=== PATIENT | male | born 1970 | race Caucasian/White ===

== ENCOUNTER → 2017-02-08 | Outpatient (REF) | payer BC, OTHER ==
[~2017-02-08] MED LIST: ADV500INH INH; ALBU0.084 IN; ALDA25TA2 PO; BENI40TA3 PO; CATA0.1T PO; COLCPOW6 XX; CRES5TAB PO; DOXA2TAB PO; FURO40TA2 PO; LOPR100T PO; METO100T PO; MINO25TA PO; MULTCAP12 PO; SENO8.6T9 PO; TYLE325T5 PO; VITA500C PO; ZYRT10CA PO
[2017-02-08 14:55] LABS: COMPLEMENT C4 29.8 MG/DL (10-40)
== END ==
LOC: M LAB REF 12:55
PROVIDERS: ATTEND Internal Medicine Nephrology
DX: M19.93 Secondary osteoarthritis, unspecified site (principal)

== ENCOUNTER → 2017-10-07 | Outpatient (CLI) | payer BC, OTHER ==
[2017-10-07 11:36] LABS: HEMATOCRIT 39.5 % (42.0-52.0); HEMOGLOBIN 13.9 g/dl (13.5-17.5); MEAN CORPUSCULAR HEMOGLOBIN 29.4 pg (27.0-33.0); MEAN CORPUSCULAR HGB CONC 35.2 g/dl (32.0-36.5); MEAN CORPUSCULAR VOLUME 83.7 fl (80.0-96.0); PLATELET COUNT, AUTOMATED 213 10^3/uL (150-450); RED BLOOD COUNT 4.72 10^6/uL (4.30-6.10); RED CELL DISTRIBUTION WIDTH 12.6 % (11.5-14.5); WHITE BLOOD COUNT 5.3 10^3/uL (4.0-10.0)
[2017-10-07 12:13] LABS: ALBUMIN 3.7 GM/DL (3.2-5.2); ALBUMIN/GLOBULIN RATIO 1.09 (1.00-1.93); ALKALINE PHOSPHATASE 90 U/L (45-117); ALT/SGPT 26 U/L (12-78); ANION GAP 6 MEQ/L (8-16); AST/SGOT 17 U/L (7-37); BILIRUBIN,TOTAL 1.2 MG/DL (0.2-1.0); BLOOD UREA NITROGEN 30 MG/DL (7-18); CALCIUM LEVEL 8.9 MG/DL (8.5-10.1); CARBON DIOXIDE LEVEL 32 MEQ/L (21-32); CHLORIDE LEVEL 105 MEQ/L (98-107); CHOLESTEROL LEVEL 198 MG/DL (<200); CPK CREATINE PHOSPHOKINASE 85 U/L (39-308); CREATININE FOR GFR 1.49 MG/DL (0.70-1.30); GLOMERULAR FILTRATION RATE 53.8 (>60); GLUCOSE, FASTING 92 MG/DL (70-100); HDL CHOLESTEROL 44 MG/DL (>40); LDL CHOLESTEROL 120.6 MG/DL (<100); NON-HDL-C 154 MG/DL; SODIUM LEVEL 143 MEQ/L (136-145); TOTAL PROTEIN 7.1 GM/DL (6.4-8.2); TRIGLYCERIDES LEVEL 167 MG/DL (<150)
== END ==
LOC: M LRY 10:19
DX: I10 Essential (primary) hypertension (principal); E78.00 Pure hypercholesterolemia, unspecified
CPT/HCPCS: 82550

== ENCOUNTER → 2018-01-20 | Outpatient (CLI) | payer BC, OTHER ==
[2018-01-20 12:32] LABS: HEMOGLOBIN 13.6 g/dl (13.5-17.5)
[2018-01-20 12:32] LABS: HEMATOCRIT 38.7 % (42.0-52.0)
[2018-01-20 13:02] LABS: ALBUMIN 3.4 GM/DL (3.2-5.2)
[2018-01-20 13:02] LABS: IRON (FE) 61 UG/DL (65-175); PERCENT SATURATION 23.1 % (19.7-50.0); TOTAL IRON BINDING CAPACITY 264 UG/DL (250-450)
[2018-01-20 13:06] LABS: ESTIMATED AVERAGE GLUCOSE 88 MG/DL (60-110); HEMOGLOBIN A1c 4.7 %
== END ==
LOC: M LRY 08:06
DX: Z51.81 Encounter for therapeutic drug level monitoring (principal); Z79.899 Other long term (current) drug therapy; M25.552 Pain in left hip; M16.11 Unilateral primary osteoarthritis, right hip
CPT/HCPCS: 82040

== ENCOUNTER → 2019-02-04 | Outpatient (REF) | LOC: M LAB LCGH 15:35 | PROVIDERS: ATTEND Physician Assistant | DX: C44.622 Squamous cell carcinoma of skin of right upper limb, including shoulder (principal) ==

== ENCOUNTER → 2020-10-03 | Outpatient (REF) | payer BC, OTHER | LOC: M LAB REF 14:09 | PROVIDERS: ATTEND Physician Assistant | DX: D23.5 Other benign neoplasm of skin of trunk (principal) ==

== ENCOUNTER → 2021-03-23 | Outpatient (CLI) | payer BC, OTHER ==
--- NOTE | 2021-03-24 04:53 | REP ---
INDICATION: LT HIP PAIN. COMPARISON: None. TECHNIQUE: Single limited AP view of the mid to lower pelvis FINDINGS: Prior right hip replacement. 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 IMPRESSION: Advanced degenerative changes to the left hip. <Electronically signed by Moncho Colbert > 03/24/21 [id number]
== END ==
LOC: M SOG 15:01
PROVIDERS: ATTEND Orthopaedic Surgery Adult Reconstructive Orthopaedic Surgery
DX: M25.552 Pain in left hip (principal); Z96.641 Presence of right artificial hip joint; M16.12 Unilateral primary osteoarthritis, left hip

== ENCOUNTER → 2021-05-02 | Outpatient (CLI) | payer BC, OTHER ==
[~2021-05-02] MED LIST changes: +ACET-683 PO; +ALBU8.5H INH; +AMIL5TAB4 PO; +ANOR1AER INH; +CALC1CAP31 PO; +CLON-412 PO; +COLC0.6T47 PO; +FEBU40TA2 PO; +FEBU80TA PO; +METO100T5 PO; +MINO10TA PO; +OLME40TA PO; +ROSU10TA6 PO; +TORS20TA2 PO
== END ==
LOC: M RAD 13:11
PROVIDERS: ATTEND Orthopaedic Surgery Adult Reconstructive Orthopaedic Surgery
DX: M16.12 Unilateral primary osteoarthritis, left hip (principal); Z96.641 Presence of right artificial hip joint

== ENCOUNTER → 2021-05-05 | Outpatient (REF) | payer BC, OTHER | LOC: M LAB REF 12:44 | PROVIDERS: ATTEND Nurse Practitioner Family | DX: E83.42 Hypomagnesemia (principal) ==

== ENCOUNTER 2021-05-09 06:13 | Inpatient (IN) | payer BC, OTHER ==
[~2021-05-09] VITALS: Ht 175.3 cm; Wt 136.0 kg
[~2021-05-09 06:13] MED LIST changes: +ACETAMINOPHEN 500 MG TAB PO ONE; +CLONIDINE PA ONE; +EPINEPHRINE PA ONE; +LR 1,000 ML IV ONE; +NAPROXEN 250 MG TAB PO ONE; +NS 1,000 ML IV ONE; +PREGABALIN 25 MG CAP (LYRICA) PO ONE; +ROPIVA 125MG/EPINEPH 0.25MG/CLONID 40MCG/KETOR 15MG IN NS 50ML SYRINGE PA ONE; +ROPIVACAINE PA ONE; +SODIUM CHLORIDE PA ONE; +TRANEXAMIC ACID INJection 1,000 MG in NS 50 ML IV ONE; +ceFAZolin SOD 1 GM in D5W MINI-BAG PLUS 50 ML IV ONE; +ceFAZolin SOD 2 GM in IV 1 EA IV ONE; +dexameTHASONE 4 MG/ML 1ML VIAL (J1100 PER 1MG) IV ONE
[2021-05-09] MEDS ORDERED: propofoL 500 MG/50 ML VIAL As Ordered ONE (06:56)
[2021-05-09] MEDS ORDERED: LIDOCAINE 2% 100MG/5ML SDV (FOR ANES.) As Ordered ONE (06:59)
[2021-05-09] MEDS ORDERED: ROCURONIUM BROMIDE 50 MG/5 ML VIAL As Ordered ONE (07:06)
[2021-05-09] MEDS ORDERED: MIDAZOLAM INJ 2MG/2ML VIAL (J2250 PER 1MG) As Ordered ONE (07:06)
[2021-05-09] MEDS ORDERED: fentaNYL 100 MCG/2 ML INJECTION (J3010) As Ordered ONE (07:07)
[2021-05-09] MEDS ORDERED: TRANEXAMIC ACID 100 MG/ML 10ML VIAL As Ordered ONE (07:16)
[2021-05-09] MEDS ORDERED: ROPIVACAINE PA ONE ×2 (08:10→08:30)
[2021-05-09] MEDS ORDERED: SODIUM CHLORIDE PA ONE ×2 (08:10→08:30)
[2021-05-09] MEDS ORDERED: CLONIDINE PA ONE ×2 (08:10→08:30)
[2021-05-09] MEDS ORDERED: EPINEPHRINE PA ONE ×2 (08:10→08:30)
[2021-05-09] MEDS ORDERED: KETAMINE HCL 200 MG/20 ML VIAL As Ordered ONE (08:12)
[2021-05-09] MEDS ORDERED: PHENYLephrine 500MCG 5ML (100MCG/ML) SYRINGE As Ordered ONE (08:27)
[2021-05-09] MEDS ORDERED: HYDROmorphone HCL 2MG/ML 1ML VIAL As Ordered ONE (08:37)
[2021-05-09] MEDS ORDERED: ePHEDrine SULFATE 25 MG/5 ML(5MG/ML) SYRINGE As Ordered ONE ×2 (08:44→09:16)
[2021-05-09] MEDS ORDERED: SUGAMMADEX SODIUM 500 MG/5 ML VIAL (BRIDION) As Ordered ONE (09:14)
[2021-05-09] MEDS ORDERED: ONDANSETRON 4MG/2ML VIAL As Ordered ONE (09:14)
[2021-05-09] MEDS ORDERED: METOCLOPRAMIDE INJ 10MG/2ML VIAL (J2765 PER 1) As Ordered ONE (09:51)
[2021-05-09] MEDS ORDERED: COLCHICINE 0.6 MG TABLET PO PRN (12:20)
[2021-05-09] MEDS ORDERED: fentaNYL 100 MCG/2 ML INJECTION (J3010) IV PRN (12:25)
[2021-05-09] MEDS ORDERED: LR 1,000 ML IV SCH ×2 (12:25→12:30)
[2021-05-09] MEDS ORDERED: HYDROMORPHONE HCL 0.5 MG/ 0.5 ML SYRINGE (J1170 PER 1) IV PRN (12:25)
[2021-05-09] MEDS ORDERED: ONDANSETRON 4MG/2ML VIAL IV PRN ×2 (12:25→12:35)
[2021-05-09] MEDS ORDERED: SENNA 8.6 MG TAB (SENOKOT) PO PRN (12:30)
[2021-05-09] MEDS ORDERED: oxyCODONE 5MG TAB PO PRN (12:30)
[2021-05-09] MEDS: oxyCODONE 5MG TAB PO PRN ×3 (12:35→22:11)
[2021-05-09 15:30] VITALS: BP 156/88
[2021-05-09 16:00] VITALS: BP 130/83
[2021-05-09 17:00] VITALS: BP 137/85
[2021-05-09] MEDS: ceFAZolin SOD 2 GM in IV 1 EA IV SCH ×2 (17:05→23:44)
[2021-05-09] MEDS: ACETAMINOPHEN TAB 650MG DOSE (2X325MG) PO SCH ×2 (17:06→23:44)
[2021-05-09] MEDS: TORSEMIDE 20 MG TAB PO SCH (17:06)
[2021-05-09 18:00] VITALS: BP 140/79
[2021-05-09 19:00] VITALS: BP 141/79
[2021-05-09 20:00] VITALS: BP 146/83
[2021-05-09] MEDS: DOCUSATE SODIUM 100MG CAPSULE PO SCH (20:31)
[2021-05-09] MEDS: METOPROLOL TARTRATE 100 MG TAB PO SCH (20:32)
[2021-05-09] MEDS: ASPIRIN 81MG ENTERIC TABLET PO SCH (20:32)
[2021-05-09] MEDS: traMADol 50 MG TAB PO PRN (20:41)
[2021-05-09] MEDS ORDERED: ROSUVASTATIN 10 MG TAB (CRESTOR) PO SCH (21:00)
[2021-05-09] MEDS: minoxidiL 2.5 MG TAB PO SCH (21:07)
[2021-05-09] MEDS: cloNIDine 0.1MG TABLET PO SCH (22:07)
[2021-05-10] VITALS: BP 114/69
[2021-05-10] MEDS: oxyCODONE 5MG TAB PO PRN ×3 (03:13→11:33)
[2021-05-10 05:17] LABS: HEMATOCRIT 33.2 % (42.0-52.0); HEMOGLOBIN 11.7 g/dl (13.5-17.5); MEAN CORPUSCULAR HEMOGLOBIN 30.2 pg (27.0-33.0); MEAN CORPUSCULAR HGB CONC 35.2 g/dl (32.0-36.5); MEAN CORPUSCULAR VOLUME 85.6 fl (80.0-96.0); PLATELET COUNT, AUTOMATED 209 10^3/uL (150-450); RED BLOOD COUNT 3.88 10^6/uL (4.30-6.10); WHITE BLOOD COUNT 8.4 10^3/uL (4.0-10.0)
[2021-05-10] MEDS: ACETAMINOPHEN TAB 650MG DOSE (2X325MG) PO SCH ×2 (05:22→11:32)
[2021-05-10] MEDS: cloNIDine 0.1MG TABLET PO SCH ×2 (05:22→13:37)
[2021-05-10 05:28] LABS: INR 1.04
[2021-05-10 05:44] LABS: ALBUMIN 3.1 GM/DL (3.2-5.2); ALT/SGPT 25 U/L (12-78); BILIRUBIN,TOTAL 0.9 MG/DL (0.2-1.0); BLOOD UREA NITROGEN 18 MG/DL (7-18); CALCIUM LEVEL 7.9 MG/DL (8.5-10.1); CARBON DIOXIDE LEVEL 25 MEQ/L (21-32); CHLORIDE LEVEL 108 MEQ/L (98-107); CREATININE FOR GFR 1.02 MG/DL (0.70-1.30); GLOMERULAR FILTRATION RATE > 60.0 (>56); GLUCOSE, FASTING 109 MG/DL (70-100); POTASSIUM SERUM 3.5 MEQ/L (3.5-5.1); SODIUM LEVEL 141 MEQ/L (136-145); TOTAL PROTEIN 6.4 GM/DL (6.4-8.2)
[2021-05-10] MEDS ORDERED: FORMOTEROL FUMARATE 20 MCG/2 ML INHALATION SOLUTION (PERFOROMIST) INH SCH (08:00)
[2021-05-10] MEDS ORDERED: TIOTROPIUM INHALER/CAPSULE (SPIRIVA) INH SCH (08:00)
[2021-05-10] MEDS ORDERED: CALCITRIOL 0.25 MCG CAP (S0169) PO SCH (09:00)
[2021-05-10] MEDS ORDERED: FERROUS SULFATE 325MG TAB PO SCH (09:00)
[2021-05-10] MEDS ORDERED: ASCORBIC ACID 500 MG TAB PO SCH (09:00)
[2021-05-10] MEDS ORDERED: aMILoride 5 MG TAB PO SCH (09:00)
[2021-05-10] MEDS: TORSEMIDE 20 MG TAB PO SCH (09:57)
[2021-05-10] MEDS: DOCUSATE SODIUM 100MG CAPSULE PO SCH (09:58)
[2021-05-10] MEDS: METOPROLOL TARTRATE 100 MG TAB PO SCH (09:58)
[2021-05-10] MEDS: minoxidiL 2.5 MG TAB PO SCH (09:58)
[2021-05-10] MEDS: ASPIRIN 81MG ENTERIC TABLET PO SCH (09:58)
[2021-05-10 10:00] VITALS: BP 138/86
[2021-05-10] MEDS: traMADol 50 MG TAB PO PRN (10:22)
[2021-05-10] MEDS ORDERED: FERR1TAB8 PO (11:42)
[2021-05-10] MEDS ORDERED: COLA100C5 PO (11:42)
[2021-05-10] MEDS ORDERED: ASPI-551 PO (11:42)
[2021-05-10] MEDS ORDERED: SENN18TA PO (11:42)
[2021-05-10] MEDS ORDERED: OXYC-517 PO (11:42)
[2021-05-10] MEDS ORDERED: TRAM50TA2 PO (11:42)
[2021-05-10 13:37] VITALS: BP 128/72
== END 2021-05-10 14:05 | disposition home or self-care (01) | DRG 301 ==
LOC: M SDC 06:13 → M MS5PR 12:21
PROVIDERS: ADMIT Internal Medicine; ATTEND Orthopaedic Surgery Adult Reconstructive Orthopaedic Surgery
PROC: 0SRB0JZ Replacement of Left Hip Joint with Synthetic Substitute, Open Approach (ICD-10-PCS; principal; 2021-05-09 07:30)
DX: M16.12 Unilateral primary osteoarthritis, left hip (principal); E66.01 Morbid (severe) obesity due to excess calories; I12.9 Hypertensive chronic kidney disease with stage 1 through stage 4 chronic kidney disease, or unspecified chronic kidney disease; Z96.641 Presence of right artificial hip joint; N18.2 Chronic kidney disease, stage 2 (mild); M10.9 Gout, unspecified; E78.00 Pure hypercholesterolemia, unspecified; J45.909 Unspecified asthma, uncomplicated; Z79.899 Other long term (current) drug therapy; Z79.82 Long term (current) use of aspirin

== ENCOUNTER → 2021-05-12 | Outpatient (REF) | payer BC, OTHER ==
[~2021-05-12] MED LIST changes: -ACETAMINOPHEN 500 MG TAB PO ONE; +ASPI-551 PO; -CLONIDINE PA ONE; +COLA100C5 PO; -EPINEPHRINE PA ONE; +FERR1TAB8 PO; -LR 1,000 ML IV ONE; -NAPROXEN 250 MG TAB PO ONE; -NS 1,000 ML IV ONE; +OXYC-517 PO; -PREGABALIN 25 MG CAP (LYRICA) PO ONE; -ROPIVA 125MG/EPINEPH 0.25MG/CLONID 40MCG/KETOR 15MG IN NS 50ML SYRINGE PA ONE; -ROPIVACAINE PA ONE; +SENN18TA PO; -SODIUM CHLORIDE PA ONE; +TRAM50TA2 PO; -TRANEXAMIC ACID INJection 1,000 MG in NS 50 ML IV ONE; -ceFAZolin SOD 1 GM in D5W MINI-BAG PLUS 50 ML IV ONE; -ceFAZolin SOD 2 GM in IV 1 EA IV ONE; -dexameTHASONE 4 MG/ML 1ML VIAL (J1100 PER 1MG) IV ONE
[2021-05-12 19:31] LABS: BASO % 0.3 % (0.0-1.0); EOS # 0.3 10^3/uL (0.0-0.5); EOS % 2.7 % (0.0-3.0); HEMOGLOBIN 12.1 g/dl (13.5-17.5); LYMPH # 2.3 10^3/uL (1.5-5.0); LYMPH % 24.1 % (24.0-44.0); MEAN CORPUSCULAR HEMOGLOBIN 29.8 pg (27.0-33.0); MEAN CORPUSCULAR HGB CONC 34.6 g/dl (32.0-36.5); MEAN CORPUSCULAR VOLUME 86.2 fl (80.0-96.0); MONO # 0.8 10^3/uL (0.0-0.8); MONO % 8.2 % (2.0-8.0); NEUTROPHILS % 64.3 % (36.0-66.0); PLATELET COUNT, AUTOMATED 225 10^3/uL (150-450); RED BLOOD COUNT 4.06 10^6/uL (4.30-6.10); WHITE BLOOD COUNT 9.3 10^3/uL (4.0-10.0)
== END ==
LOC: M SHH 17:21
PROVIDERS: ATTEND Orthopaedic Surgery Adult Reconstructive Orthopaedic Surgery
DX: M16.12 Unilateral primary osteoarthritis, left hip (principal); Z96.642 Presence of left artificial hip joint

== ENCOUNTER → 2021-05-22 | Outpatient (CLI) | payer BC, OTHER | LOC: M SOG 09:51 | PROVIDERS: ATTEND Orthopaedic Surgery Adult Reconstructive Orthopaedic Surgery | DX: Z96.643 Presence of artificial hip joint, bilateral (principal) ==

== ENCOUNTER → 2021-12-21 | Outpatient (CLI) | payer BC, OTHER | LOC: M LABSMTC 10:32 | PROVIDERS: ATTEND Anesthesiology | DX: Z01.818 Encounter for other preprocedural examination (principal); Z11.52 Encounter for screening for COVID-19 ==

== ENCOUNTER 2021-12-26 09:42 | Day surgery (SDC) | payer BC, OTHER ==
[~2021-12-26] VITALS: Ht 175.3 cm; Wt 143.3 kg
[~2021-12-26 09:42] MED LIST changes: +NS 1,000 ML IV ONE
[2021-12-26] MEDS ORDERED: propofoL 200 MG/20 ML VIAL As Ordered ONE ×2 (11:21→11:40)
[2021-12-26 11:58] VITALS: BP 112/53
== END 2021-12-26 12:05 | disposition home or self-care (01) ==
LOC: M OPP 09:42
PROVIDERS: ATTEND Internal Medicine Gastroenterology
DX: D12.2 Benign neoplasm of ascending colon (principal); D12.3 Benign neoplasm of transverse colon; D12.4 Benign neoplasm of descending colon; K64.8 Other hemorrhoids; R19.5 Other fecal abnormalities; Z79.02 Long term (current) use of antithrombotics/antiplatelets; Z79.51 Long term (current) use of inhaled steroids; Z79.82 Long term (current) use of aspirin; Z79.899 Other long term (current) drug therapy; G47.30 Sleep apnea, unspecified; Z99.89 Dependence on other enabling machines and devices; I10 Essential (primary) hypertension; M10.9 Gout, unspecified; J44.9 Chronic obstructive pulmonary disease, unspecified; N28.89 Other specified disorders of kidney and ureter; Z80.7 Family history of other malignant neoplasms of lymphoid, hematopoietic and related tissues; F17.220 Nicotine dependence, chewing tobacco, uncomplicated

== ENCOUNTER → 2022-04-27 | Outpatient (CLI) | payer BC, OTHER ==
[~2022-04-27] MED LIST changes: -NS 1,000 ML IV ONE
== END ==
LOC: M SOG 08:01
PROVIDERS: ATTEND Orthopaedic Surgery Adult Reconstructive Orthopaedic Surgery
DX: Z96.642 Presence of left artificial hip joint (principal)

== ENCOUNTER → 2022-05-10 | Outpatient (CLI) | payer BC, OTHER | LOC: M SOG 08:08 | PROVIDERS: ATTEND Orthopaedic Surgery Adult Reconstructive Orthopaedic Surgery | DX: M25.561 Pain in right knee (principal) ==

== ENCOUNTER → 2022-08-13 | Outpatient (CLI) | payer BC, OTHER ==
[2022-08-13 08:54] LABS: HEMATOCRIT 38.2 % (42.0-52.0); HEMOGLOBIN 13.7 g/dl (13.5-17.5); MEAN CORPUSCULAR HEMOGLOBIN 30.6 pg (27.0-33.0); MEAN CORPUSCULAR HGB CONC 35.9 g/dl (32.0-36.5); MEAN CORPUSCULAR VOLUME 85.5 fl (80.0-96.0); PLATELET COUNT, AUTOMATED 189 10^3/uL (150-450); RED BLOOD COUNT 4.47 10^6/uL (4.30-6.10); WHITE BLOOD COUNT 4.2 10^3/uL (4.0-10.0)
[2022-08-13 09:27] LABS: ALBUMIN 3.5 G/DL (3.2-5.2); BLOOD UREA NITROGEN 23 MG/DL (9-23); CARBON DIOXIDE LEVEL 29 MMOL/L (20-31); CHLORIDE LEVEL 106 MMOL/L (98-107); CHOLESTEROL LEVEL 145 MG/DL (<200); CHOLESTEROL RISK RATIO 3.18 (<5); CREATININE FOR GFR 1.31 MG/DL (0.70-1.30); GLOMERULAR FILTRATION RATE > 60.0 (>56); GLUCOSE, FASTING 103 MG/DL (60-100); HDL CHOLESTEROL 45.5 MG/DL (>40); LDL CHOLESTEROL 64.7 MG/DL (<100); NON-HDL-C 99.5 MG/DL; PHOSPHORUS LEVEL 2.9 MG/DL (2.5-4.9); POTASSIUM SERUM 3.8 MMOL/L (3.5-5.1); SODIUM LEVEL 141 MMOL/L (136-145); TRIGLYCERIDES LEVEL 174 MG/DL (<150)
[2022-08-15 10:13] LABS: PSA TOTAL 3.7 ng/mL (0.0-4.0)
== END ==
LOC: M LAB 08:06
PROVIDERS: ATTEND Physician Assistant
DX: I10 Essential (primary) hypertension (principal); E78.5 Hyperlipidemia, unspecified

== ENCOUNTER → 2023-02-15 | Outpatient (CLI) | payer BC, OTHER ==
[~2023-02-15] MED LIST changes: -FEBU40TA2 PO; +FEBU40TA6 PO; +SENN-111 PO; -SENN18TA PO
== END ==
LOC: M RAD 06:57
PROVIDERS: ATTEND Nurse Practitioner Family
DX: N18.31 Chronic kidney disease, stage 3a (principal)

== ENCOUNTER → 2023-10-10 | Outpatient (CLI) | payer BC ==
[~2023-10-10] MED LIST changes: -FEBU80TA PO; +FEBU80TA4 PO; -ROSU10TA6 PO; +ROSU10TA61 PO
== END ==
LOC: M ONCR 07:57
PROVIDERS: ATTEND General Practice
DX: C61 Malignant neoplasm of prostate (principal); R35.0 Frequency of micturition; Z79.899 Other long term (current) drug therapy; Z80.0 Family history of malignant neoplasm of digestive organs; Z96.643 Presence of artificial hip joint, bilateral

== ENCOUNTER → 2023-11-21 | Outpatient (CLI) | payer BC ==
[~2023-11-21] VITALS: Ht 172.7 cm; Wt 145.4 kg
[~2023-11-21] MED LIST changes: +CIPR750T2 PO; +FLOM0.4C39 PO; +LORA1TAB23 PO
[2023-11-21 14:31] VITALS: BP 128/80; O2SAT 99
[2023-11-21] MEDS: LIDOCAINE VISCOUS 2% SOLN 15ML UDC XX ONE (14:44)
[2023-11-21] MEDS: LIDOCAINE 2% MDV 20ML VIAL XX ONE (14:47)
[2023-11-21 15:07] VITALS: BP 136/85; O2SAT 99
== END ==
LOC: M ONCR 14:06
PROVIDERS: ATTEND General Practice
DX: C61 Malignant neoplasm of prostate (principal)
CPT/HCPCS: 55874; 55876; A4648; C1889

== ENCOUNTER 2023-12-13 13:16 | Outpatient (RCR) | payer BC ==
[~2023-12-13 13:16] MED LIST changes: -FLOM0.4C39 PO
[2023-12-17] MEDS ORDERED: FLOM0.4C39 PO (14:23)
== END 2023-12-14 ==
LOC: M ONCR 13:16
PROVIDERS: ATTEND General Practice
DX: Z51.0 Encounter for antineoplastic radiation therapy (principal); C61 Malignant neoplasm of prostate

== ENCOUNTER → 2024-01-13 | Outpatient (RCR) | payer BC ==
[~2024-01-13] MED LIST changes: +FLOM0.4C39 PO; -SENN-111 PO; +SENN-165 PO
== END ==
LOC: M ONCR 12-17 13:22
PROVIDERS: ATTEND General Practice
DX: Z51.0 Encounter for antineoplastic radiation therapy (principal); C61 Malignant neoplasm of prostate

== ENCOUNTER 2024-01-21 13:18 | Outpatient (RCR) | payer BC | END 2024-02-13 | LOC: M ONCR 13:18 | PROVIDERS: ATTEND General Practice | DX: Z51.0 Encounter for antineoplastic radiation therapy (principal); C61 Malignant neoplasm of prostate ==

== ENCOUNTER → 2024-04-14 | Outpatient (CLI) | payer BC ==
[2024-04-16 12:31] LABS: PSA FREE 0.2 ng/mL; PSA TOTAL 1.8 ng/mL (< OR = 4.0)
== END ==
LOC: M LAB 12:52
PROVIDERS: ATTEND General Practice
DX: C61 Malignant neoplasm of prostate (principal)

== ENCOUNTER → 2024-04-22 | Outpatient (CLI) | payer BC | LOC: M ONCR 13:17 | PROVIDERS: ATTEND General Practice | DX: C61 Malignant neoplasm of prostate (principal); Z92.3 Personal history of irradiation; Z79.899 Other long term (current) drug therapy; Z87.891 Personal history of nicotine dependence ==

== ENCOUNTER → 2024-10-20 | Outpatient (CLI) | payer BC ==
[~2024-10-20] MED LIST changes: -FLOM0.4C39 PO; +TAMS-18 PO
== END ==
LOC: M ONCR 10:51
PROVIDERS: ATTEND General Practice
DX: Z08 Encounter for follow-up examination after completed treatment for malignant neoplasm (principal); Z85.46 Personal history of malignant neoplasm of prostate; Z79.899 Other long term (current) drug therapy; Z92.3 Personal history of irradiation